=== PATIENT | female | born 1965 | race Caucasian/White ===

== ENCOUNTER 2016-12-22 12:36 | Emergency (ER) | payer OTHER ==
[~2016-12-22] VITALS: Ht 167.6 cm; Wt 63.6 kg
[~2016-12-22 12:36] MED LIST: ALBU18HF INH; FLUT10.62 IH; MOME17SP NS; VALA1000 PO
[2016-12-22 12:41] VITALS: BP 144/81; PULSE 68; RESP 16; O2SAT 97
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
== END 2016-12-22 13:51 | disposition home or self-care (01) ==
LOC: SED 12:36
DX: T74.11XA Adult physical abuse, confirmed, initial encounter (principal); Y07.01 Husband, perpetrator of maltreatment and neglect; Y93.89 Activity, other specified; Y92.9 Unspecified place or not applicable; Y99.8 Other external cause status; J45.909 Unspecified asthma, uncomplicated; Z87.891 Personal history of nicotine dependence; Z88.5 Allergy status to narcotic agent; Z88.8 Allergy status to other drugs, medicaments and biological substances; Z88.1 Allergy status to other antibiotic agents